=== PATIENT | male | born 1970 | race Caucasian/White ===

== ENCOUNTER 2020-03-30 20:14 | Emergency (ER) | payer BC ==
[2020-03-30 20:20] VITALS: RESP 16
[2020-03-30] MEDS ORDERED: FAMOTIDINE 20 MG/2 ML VIAL IV STA (20:35)
[2020-03-30] MEDS ORDERED: SODIUM CHLORIDE 0.9% 500 ML 500 ML IV STA (20:35)
[2020-03-30] MEDS ORDERED: hydrOXYzine HCL 25 MG TAB PO STA (20:35)
[2020-03-30] MEDS ORDERED: DEXAMETHASONE SOD PHOSPHATE 10 MG/ML 1 ML VIAL IV STA (20:35)
--- NOTE | 2020-03-30 20:44 | ED ---
Allergic Reaction HPI - General Chief complaint: Allergic Reaction Stated complaint: Allergic Reaction Time Seen by Provider: 03/30/20 20:25 Source: patient, RN notes reviewed, old records reviewed Mode of arrival: ambulatory Limitations: no limitations - History of Present Illness Initial Comments: This is a 41-year-old male DF for evaluation of ALLERGIC reaction likely bee sting, patient has no stinger left in his right leg but he has have diffuse urticarial reaction itching and swelling. No shortness of breath and difficulty breathing and no wheezing no medical history takes no medications aside from metformin for prediabetes no prior ALLERGIC reactions MD Complaint: allergic reaction -: hour(s) Exposure: insect bite Symptoms: rash, itching Severity: moderate Treatment Prior to Arrival: benadryl Previous Allergy History: none - Related Data Allergies Allergy/AdvReac Type Severity Reaction Status Date / Time No Known Allergies Allergy Verified 03/30/20 20:20 Review of Systems ROS Statement: Those systems with pertinent positive or pertinent negative responses have been documented in the HPI. ROS Other: All systems not noted in ROS Statement are negative. Past Medical History Past Medical History: Diabetes Mellitus Additional Past Medical History / Comment(s): pneumonia History of Any Multi-Drug Resistant Organisms: None Reported Past Psychological History: No Psychological Hx Reported Smoking Status: Never smoker Past Alcohol Use History: Occasional Past Drug Use History: None Reported General Exam - General Exam Comments Initial Comments: Diffuse urticarial reaction Limitations: no limitations General appearance: alert, in no apparent distress Head exam: Present: atraumatic, normocephalic, normal inspection Eye exam: Present: normal appearance, PERRL, EOMI. Absent: scleral icterus, conjunctival injection, periorbital swelling ENT exam: Present: normal exam, mucous membranes moist Neck exam: Present: normal inspection. Absent: tenderness, meningismus, lymphadenopathy Respiratory exam: Present: normal lung sounds bilaterally. Absent: respiratory distress, wheezes, rales, rhonchi, stridor Cardiovascular Exam: Present: regular rate, normal rhythm, normal heart sounds. Absent: systolic murmur, diastolic murmur, rubs, gallop, clicks GI/Abdominal exam: Present: soft, normal bowel sounds. Absent: distended, tenderness, guarding, rebound, rigid Extremities exam: Present: normal inspection, full ROM, normal capillary refill. Absent: tenderness, pedal edema, joint swelling, calf tenderness Back exam: Present: normal inspection Neurological exam: Present: alert, oriented X3, CN II-XII intact Psychiatric exam: Present: normal affect, normal mood Skin exam: Present: warm, dry, intact, normal color. Absent: rash Course Vital Signs 03/30/20 20:15 Temperature 98.7 F Pulse Rate 117 H Respiratory 16 Rate Blood Pressure 129/67 O2 Sat by Pulse 95 Oximetry - Reevaluation(s) Reevaluation #1: 03/30/20 20:43 Medical record is reviewed Reevaluation #2: symptoms significantly improved Medical Decision Making - Medical Decision Making Auty female DF for evaluation of significant ALLERGIC reaction or urticarial reaction. Patient symptoms significantly improved here in the ER and will be discharged home Disposition Clinical Impression: Allergic reaction, Urticaria, Allergic reaction to insect sting Disposition: HOME SELF-CARE Condition: Good Instructions (If sedation given, give patient instructions): Anaphylaxis (ED), Urticaria (ED) Is patient prescribed a controlled substance at d/c from ED?: No Referrals: Nonstaff,Physician [Primary Care Provider] - 1-2 days
[2020-03-30 21:30] VITALS: BP 111/55; PULSE 91; TEMP 98
== END 2020-03-30 21:32 | disposition home or self-care (01) ==
LOC: EC 20:14
DX: T63.481A Toxic effect of venom of other arthropod, accidental (unintentional), initial encounter (principal); L50.9 Urticaria, unspecified; Y92.89 Other specified places as the place of occurrence of the external cause; Y93.A6 Activity, grass drills
CPT/HCPCS: 99283; 96374; 96375; J1100